=== PATIENT | male | born 1965 | race African-American/Black ===

== ENCOUNTER 2016-10-12 02:46 | Inpatient (IN) | payer MEDICARE, MEDICAID ==
[~2016-10-12] VITALS: Ht 190.5 cm; Wt 73.3 kg
[~2016-10-12 02:46] MED LIST: ADVAIR; ALBU25PO2; ALBUTEROL; AMLO5TAB2 PO; ANTIHYPERTENSIVE PO; ASPI-515 PO; ASPI-650 PO; ATOR80TA75 PO; AZIT500T4 PO; CEFD300C2 PO; DILT360C PO; DOXY100C15 PO; DOXY50CA42 PO; FLUT1AER INH; FLUT1DIS; HYDR12.53 PO; HYDR25TA6 PO; IPRA14.7; LISI5TAB7 PO; METO50TA82 PO; NICO1PAT4 TD; NICO1PAT5 TD; PRED10TA PO; PRED10TA14 PO; PRED20TA PO; PRED5TAB PO; PROVENTIL; VERA120T5 PO
[2016-10-12] MEDS ORDERED: methylPREDNISolone SOD SUCC 125 MG/2 ML IVP ONE (03:00)
[2016-10-12] MEDS ORDERED: SODIUM CHLORIDE FLUSH 10ML SYR IVF ONE (03:00)
[2016-10-12] MEDS ORDERED: SODIUM CHLORIDE 0.9% 1,000ML IVBOLUS ONE (03:00)
[2016-10-12] MEDS ORDERED: ONDANSETRON 2MG/ML, 2ML IVP ONE (03:00)
[2016-10-12] MEDS ORDERED: ALBUTEROL 0.5%, 20ML NPPB SCH (03:00)
[2016-10-12] MEDS ORDERED: IPRATROPIUM 0.5 MG/2.5 ML INHA NPPB SCH (03:00)
[2016-10-12] MEDS ORDERED: methylPREDNISolone SOD SUCC 125 MG/2 ML ONE (03:08)
[2016-10-12] MEDS ORDERED: ONDANSETRON 2MG/ML, 2ML ONE (03:08)
[2016-10-12] MEDS ORDERED: ALBUTEROL/IPRATROPIUM 2.5MG/0.5MG, 3 ML ONE (03:11)
[2016-10-12 03:39] LABS: ASPARTATE AMINO TRANSFERASE 28 U/L (15-37); BLOOD UREA NITROGEN 17 mg/dL (7-18)
[2016-10-12 03:43] LABS: IS PT STATUS REG ER OR PRE ER? YES
[2016-10-12] MEDS ORDERED: ASPIRIN 325 MG TABLET PO ONE (04:00)
[2016-10-12] MEDS ORDERED: ASPIRIN 325 MG TABLET ONE (04:09)
[2016-10-12] MEDS ORDERED: SODIUM CHLORIDE 0.9% 1,000 ML IV SCH (07:29)
[2016-10-12] MEDS ORDERED: LABETALOL 5MG/ML, 20ML IV PRN (07:30)
[2016-10-12] MEDS ORDERED: TRAZODONE 50MG TABLET PO PRN (07:30)
[2016-10-12] MEDS ORDERED: BISACODYL 10 MG SUPP PR PRN (07:30)
[2016-10-12] MEDS ORDERED: ACETAMINOPHEN 325 MG TABLET PO PRN (07:30)
[2016-10-12] MEDS ORDERED: DOCUSATE 100 MG CAPSULE PO PRN (07:30)
[2016-10-12] MEDS ORDERED: POLYETHYLENE GLYCOL 17 GM PACKET PO PRN (07:30)
[2016-10-12] MEDS ORDERED: ONDANSETRON ODT 4 MG PO PRN (07:30)
[2016-10-12] MEDS ORDERED: REGADENOSON 0.4 MG/5 ML SYRINGE ONE (08:06)
[2016-10-12 08:58] LABS: IS PT STATUS REG ER OR PRE ER? NO
[2016-10-12] MEDS: HYDROCHLOROTHIAZIDE 25 MG TABLET PO SCH (09:18)
[2016-10-12] MEDS: HEPARIN 5,000 UNITS/ML, 1ML SQ SCH ×3 (09:18→23:30)
[2016-10-12] MEDS: ASPIRIN 81 MG TABLET EC PO SCH (09:18)
[2016-10-12] MEDS: AZITHROMYCIN 500 MG TABLET PO SCH (09:18)
[2016-10-12] MEDS: METOPROLOL TARTRATE 50 MG TABLET PO SCH ×2 (09:18→18:16)
[2016-10-12] MEDS: NICOTINE 21 MG/24 HR PATCH.TD24 TD SCH (09:19)
[2016-10-12] MEDS ORDERED: ALBUTEROL SULFATE 2.5 MG/3 ML NPPB PRN (10:00)
[2016-10-12 12:52] VITALS: BP 144/96
[2016-10-12] MEDS: FLUTICASONE/VILANTEROL 100-25MCG/INH INH SCH (12:53)
[2016-10-12 15:51] LABS: IS PT STATUS REG ER OR PRE ER? NO
[2016-10-12 19:27] VITALS: BP 140/88
[2016-10-12] MEDS: ATORVASTATIN 80 MG TABLET PO SCH ×2 (22:44→23:30)
[2016-10-13 01:36] VITALS: BP 124/70
[2016-10-13 03:35] LABS: DAU SCREEN DISCLAIMER
[2016-10-13 05:33] LABS: HEMOGLOBIN 14.8 g/dL (13.7-18.0)
[2016-10-13 05:45] LABS: BLOOD UREA NITROGEN 22 mg/dL (7-18)
[2016-10-13 05:54] LABS: DIFF TOTAL CELLS COUNTED 100 CELL DIFF
[2016-10-13 05:55] LABS: VERIFY COUNTS? YES
[2016-10-13] MEDS: NICOTINE 21 MG/24 HR PATCH.TD24 TD SCH (07:30)
[2016-10-13 07:31] VITALS: BP 138/90
[2016-10-13] MEDS: AZITHROMYCIN 500 MG TABLET PO SCH (07:38)
[2016-10-13] MEDS: HYDROCHLOROTHIAZIDE 25 MG TABLET PO SCH (07:38)
[2016-10-13] MEDS: ASPIRIN 81 MG TABLET EC PO SCH (07:38)
[2016-10-13] MEDS: METOPROLOL TARTRATE 50 MG TABLET PO SCH (07:38)
[2016-10-13] MEDS: FLUTICASONE/VILANTEROL 100-25MCG/INH INH SCH (07:40)
[2016-10-13] MEDS: HEPARIN 5,000 UNITS/ML, 1ML SQ SCH (07:40)
[2016-10-13] MEDS ORDERED: AZIT500T4 PO (10:19)
[2016-10-13] MEDS ORDERED: IPRA4AER INH (10:19)
[2016-10-13] MEDS ORDERED: PRED10TA PO (10:19)
[2016-10-13] MEDS ORDERED: LISI5TAB7 PO (10:35)
== END 2016-10-13 11:54 | disposition home or self-care (01) | DRG 895 ==
LOC: ED 02:49 → EDIP 03:46 → 5SO 07:59 → 3NE 18:03 → DCLOUNGE 10-13 11:34
PROVIDERS: ADMIT Internal Medicine; ATTEND Internal Medicine
PROC: HZ31ZZZ Individual Counseling for Substance Abuse Treatment, Behavioral (ICD-10-PCS; principal; 2016-10-12)
DX: F15.188 Other stimulant abuse with other stimulant-induced disorder (principal); J44.1 Chronic obstructive pulmonary disease with (acute) exacerbation; I10 Essential (primary) hypertension; F12.10 Cannabis abuse, uncomplicated; F17.210 Nicotine dependence, cigarettes, uncomplicated; Z82.49 Family history of ischemic heart disease and other diseases of the circulatory system; Z83.3 Family history of diabetes mellitus; Z71.51 Drug abuse counseling and surveillance of drug abuser
CPT/HCPCS: 36415; 71010; 78452; 80048; 80053; 80307; 83735; 84439; 84443; 84484; 85025; 93005; 93017; 94640; 96361; 96374; J1644; J2405; J2785; J7613; A9502; C9898; J2930; J7030; J7512

== ENCOUNTER 2016-12-02 01:09 | Emergency (ER) | payer MEDICARE, MEDICAID ==
[~2016-12-02] VITALS: Ht 190.5 cm; Wt 71.9 kg
[~2016-12-02 01:09] MED LIST changes: -AZIT500T4 PO; +AZIT500T77 PO; -CEFD300C2 PO; +CEFD300C37 PO; +IPRA4AER INH
[2016-12-02 02:29] LABS: BLOOD UREA NITROGEN 18 mg/dL (7-18)
[2016-12-02] MEDS ORDERED: ALBUTEROL SULFATE 2.5 MG/3 ML NPPB ONE (02:30)
[2016-12-02 02:38] LABS: IS PT STATUS REG ER OR PRE ER? YES
[2016-12-02] MEDS ORDERED: ALBUTEROL/IPRATROPIUM 2.5MG/0.5MG, 3 ML ONE (03:48)
[2016-12-02 04:05] VITALS: BP 139/91
== END 2016-12-02 04:09 | disposition home or self-care (01) ==
LOC: ED 03:01
DX: J44.1 Chronic obstructive pulmonary disease with (acute) exacerbation (principal); I10 Essential (primary) hypertension; I25.2 Old myocardial infarction
CPT/HCPCS: 36415; 71010; 80048; 82040; 84484; 85025; 94640; 99285; J7512; J7613

== ENCOUNTER 2016-12-06 09:56 | Emergency (ER) | payer MEDICARE, MEDICAID ==
[~2016-12-06] VITALS: Ht 190.5 cm; Wt 72.0 kg
[2016-12-06] MEDS ORDERED: ALBUTEROL SULFATE 2.5 MG/3 ML NPPB ONE (10:00)
[2016-12-06] MEDS ORDERED: DEXAMETHASONE 4 MG/ML, 1ML IVPush ONE (10:00)
[2016-12-06] MEDS ORDERED: ALBUTEROL 0.5%, 20ML ONE (10:12)
[2016-12-06] MEDS ORDERED: DEXAMETHASONE 4 MG/ML, 1ML ONE (10:23)
[2016-12-06] MEDS ORDERED: ALBUTEROL 0.5%, 20ML NPPBCONT PRN (11:00)
[2016-12-06 11:25] VITALS: BP 154/117
== END 2016-12-06 11:28 | disposition home or self-care (01) ==
LOC: ED 10:33
DX: J96.01 Acute respiratory failure with hypoxia (principal); I10 Essential (primary) hypertension; J45.51 Severe persistent asthma with (acute) exacerbation; Z91.14 Patient's other noncompliance with medication regimen; J44.9 Chronic obstructive pulmonary disease, unspecified; F17.210 Nicotine dependence, cigarettes, uncomplicated
CPT/HCPCS: 71010; 93005; 94644; 96374; 99291; J1100

== ENCOUNTER 2017-01-11 13:30 | Emergency (ER) | payer MEDICARE, MEDICAID ==
[~2017-01-11] VITALS: Ht 190.5 cm; Wt 68.5 kg
[2017-01-11 13:32] VITALS: BP 144/87
[2017-01-11] MEDS ORDERED: ALBUTEROL/IPRATROPIUM 2.5MG/0.5MG, 3 ML ONE (14:20)
[2017-01-11] MEDS ORDERED: ALBUTEROL/IPRATROPIUM 2.5MG/0.5MG, 3 ML NPPB ONE (14:30)
[2017-01-11 14:40] LABS: BLOOD UREA NITROGEN 14 mg/dL (7-18)
== END 2017-01-11 15:40 | disposition home or self-care (01) ==
LOC: ED 15:15
DX: J44.1 Chronic obstructive pulmonary disease with (acute) exacerbation (principal); I10 Essential (primary) hypertension; I25.2 Old myocardial infarction
CPT/HCPCS: 36415; 71020; 80048; 82040; 85025; 93005; 94640; 99285; J7512; J7620

== ENCOUNTER 2017-02-24 08:11 | Emergency (ER) | payer MEDICAID, MEDICARE ==
[~2017-02-24] VITALS: Ht 190.5 cm; Wt 70.0 kg
[2017-02-24] MEDS ORDERED: ALBUTEROL/IPRATROPIUM 2.5MG/0.5MG, 3 ML ONE (08:23)
[2017-02-24] MEDS ORDERED: methylPREDNISolone SOD SUCC 125 MG/2 ML ONE (08:28)
[2017-02-24] MEDS ORDERED: SODIUM CHLORIDE 0.9% 1,000ML IVBOLUS ONE (08:30)
[2017-02-24] MEDS ORDERED: ALBUTEROL/IPRATROPIUM 2.5MG/0.5MG, 3 ML NPPB ONE (08:30)
[2017-02-24] MEDS ORDERED: SODIUM CHLORIDE FLUSH 10ML SYR IVF ONE (08:30)
[2017-02-24] MEDS ORDERED: methylPREDNISolone SOD SUCC 125 MG/2 ML IVP ONE (08:30)
[2017-02-24 09:10] LABS: HEMATOCRIT 40.6 % (39.2-51.8); HEMOGLOBIN 13.3 g/dL (13.7-18.0); WHITE BLOOD COUNT 10.6 x10^3/uL (3.4-10)
[2017-02-24 09:24] LABS: BLOOD UREA NITROGEN 6 mg/dL (7-18)
[2017-02-24 09:32] LABS: IS PT STATUS REG ER OR PRE ER? YES
[2017-02-24] MEDS ORDERED: CLOPIDOGREL 75 MG TABLET ONE (09:44)
[2017-02-24] MEDS ORDERED: CLOPIDOGREL 75 MG TABLET PO ONE (10:00)
[2017-02-24 12:43] LABS: IS PT STATUS REG ER OR PRE ER? YES
[2017-02-24 13:22] VITALS: BP 148/75
== END 2017-02-24 13:24 | disposition home or self-care (01) ==
LOC: ED 08:54
DX: J44.1 Chronic obstructive pulmonary disease with (acute) exacerbation (principal); R07.89 Other chest pain; R74.8 Abnormal levels of other serum enzymes; I51.7 Cardiomegaly; F17.210 Nicotine dependence, cigarettes, uncomplicated; J43.9 Emphysema, unspecified; I25.2 Old myocardial infarction
CPT/HCPCS: 36415; 71010; 80048; 82040; 84484; 85025; 93005; 94640; 96361; 96374; 99285; J2930; J7030; J7620

== ENCOUNTER 2017-05-07 04:52 | Inpatient (IN) | payer MEDICARE, MEDICAID ==
[~2017-05-07] VITALS: Ht 188 cm; Wt 73.0 kg
[~2017-05-07 04:52] MED LIST changes: +ATOR-2 PO; -ATOR80TA75 PO; +AZIT500T5 PO; -AZIT500T77 PO; +NICO-486 TD; +NICO-487 TD; -NICO1PAT4 TD; -NICO1PAT5 TD
[2017-05-07] MEDS ORDERED: SODIUM CHLORIDE 0.9% 1,000 ML IV ONE (05:01)
[2017-05-07] MEDS: ALBUTEROL/IPRATROPIUM 2.5MG/0.5MG, 3 ML NPPB SCH ×4 (05:06→21:49)
[2017-05-07] MEDS ORDERED: methylPREDNISolone SOD SUCC 125 MG/2 ML ONE ×2 (05:19→10:24)
[2017-05-07] MEDS ORDERED: methylPREDNISolone SOD SUCC 125 MG/2 ML IVP ONE (05:30)
[2017-05-07] MEDS ORDERED: SODIUM CHLORIDE FLUSH 10ML SYR IVF ONE (05:30)
[2017-05-07 05:48] LABS: ABG COLLECTION SITE RIGHT RADIAL; COLLATERAL CIRCULATION TESTING NORMAL
[2017-05-07 05:57] LABS: BLOOD UREA NITROGEN 24 mg/dL (7-18)
[2017-05-07 06:13] LABS: HEMATOCRIT 40.8 % (39.2-51.8); HEMOGLOBIN 13.5 g/dL (13.7-18.0); WHITE BLOOD COUNT 7.7 x10^3/uL (3.4-10)
[2017-05-07] MEDS ORDERED: ALBUTEROL/IPRATROPIUM 2.5MG/0.5MG, 3 ML NPPB SCH (07:00)
[2017-05-07] MEDS ORDERED: ENALAPRILAT 1.25 MG/ML, 2ML ONE (08:59)
[2017-05-07] MEDS ORDERED: ENALAPRILAT 1.25 MG/ML, 2ML IV ONE (09:00)
[2017-05-07] MEDS ORDERED: ONDANSETRON 2MG/ML, 2ML IVPush PRN (10:00)
[2017-05-07] MEDS ORDERED: ACETAMINOPHEN 325 MG TABLET PO PRN (10:00)
[2017-05-07] MEDS ORDERED: ALBUTEROL/IPRATROPIUM 2.5MG/0.5MG, 3 ML NPPB PRN (10:00)
[2017-05-07] MEDS ORDERED: FUROSEMIDE 20 MG/2 ML ONE (10:24)
[2017-05-07] MEDS ORDERED: ENOXAPARIN 40 MG/0.4 ML ONE (10:24)
[2017-05-07] MEDS: methylPREDNISolone SOD SUCC 125 MG/2 ML IVPush SCH ×3 (10:33→22:03)
[2017-05-07] MEDS: FUROSEMIDE 20 MG/2 ML IV SCH (10:34)
[2017-05-07] MEDS: ENOXAPARIN 40 MG/0.4 ML SQ SCH (10:34)
[2017-05-07] MEDS ORDERED: ALBUTEROL/IPRATROPIUM 2.5MG/0.5MG, 3 ML ONE (10:46)
[2017-05-07] MEDS: HYDROCHLOROTHIAZIDE 25 MG TABLET PO SCH (12:14)
[2017-05-07] MEDS: DOXYCYCLINE 100 MG in DEXTROSE 5% 250 ML IV SCH ×2 (12:15→23:56)
[2017-05-07 13:45] VITALS: BP 141/93
[2017-05-07 19:20] VITALS: BP 139/88
[2017-05-08 01:28] VITALS: BP 113/76
[2017-05-08] MEDS: methylPREDNISolone SOD SUCC 125 MG/2 ML IVPush SCH ×4 (04:41→21:10)
[2017-05-08] MEDS: ALBUTEROL/IPRATROPIUM 2.5MG/0.5MG, 3 ML NPPB SCH ×3 (06:00→14:00)
[2017-05-08 06:02] LABS: BLOOD UREA NITROGEN 28 mg/dL (7-18); HEMATOCRIT 43.2 % (39.2-51.8); HEMOGLOBIN 14.2 g/dL (13.7-18.0); WHITE BLOOD COUNT 17.1 x10^3/uL (3.4-10)
[2017-05-08 06:13] LABS: ASPARTATE AMINO TRANSFERASE 30 U/L (15-37)
[2017-05-08 07:30] VITALS: BP 148/104
[2017-05-08 07:50] VITALS: BP 144/98
[2017-05-08] MEDS: ENOXAPARIN 40 MG/0.4 ML SQ SCH (09:26)
[2017-05-08] MEDS: FUROSEMIDE 20 MG/2 ML IV SCH (09:26)
[2017-05-08] MEDS: HYDROCHLOROTHIAZIDE 25 MG TABLET PO SCH (09:27)
[2017-05-08] MEDS: DOXYCYCLINE 100 MG in DEXTROSE 5% 250 ML IV SCH ×2 (12:24→23:59)
[2017-05-08 13:45] VITALS: BP 113/77
[2017-05-08] MEDS ORDERED: ALBUTEROL/IPRATROPIUM 2.5MG/0.5MG, 3 ML NPPB PRN (19:00)
[2017-05-08 20:22] VITALS: BP 145/97
[2017-05-09 01:40] VITALS: BP 141/84
[2017-05-09] MEDS: methylPREDNISolone SOD SUCC 125 MG/2 ML IVPush SCH ×3 (03:29→16:22)
[2017-05-09 05:28] LABS: HEMATOCRIT 45.2 % (39.2-51.8); WHITE BLOOD COUNT 22.2 x10^3/uL (3.4-10)
[2017-05-09 05:37] LABS: BLOOD UREA NITROGEN 37 mg/dL (7-18)
[2017-05-09 06:02] LABS: DIFF TOTAL CELLS COUNTED 100 CELL DIFF
[2017-05-09 06:03] LABS: VERIFY COUNTS? YES
[2017-05-09 06:04] LABS: ANISOCYTOSIS 1+; POLYCHROMASIA 1+
[2017-05-09 08:19] VITALS: BP 144/101
[2017-05-09] MEDS: FUROSEMIDE 20 MG/2 ML IV SCH (08:34)
[2017-05-09] MEDS: ENOXAPARIN 40 MG/0.4 ML SQ SCH (08:35)
[2017-05-09] MEDS: HYDROCHLOROTHIAZIDE 25 MG TABLET PO SCH (08:35)
[2017-05-09] MEDS: DOXYCYCLINE 100 MG in DEXTROSE 5% 250 ML IV SCH (11:46)
[2017-05-09 14:08] VITALS: BP 122/88
[2017-05-09] MEDS ORDERED: ACETAMINOPHEN 325 MG TABLET PO PRN (16:00)
[2017-05-09] MEDS ORDERED: ONDANSETRON 2MG/ML, 2ML IVPush PRN (16:00)
[2017-05-09] MEDS ORDERED: HYDR25TA11 PO (17:37)
[2017-05-09] MEDS ORDERED: FURO20TA3 PO (17:41)
[2017-05-09] MEDS ORDERED: PRED10TA PO (17:41)
[2017-05-09] MEDS ORDERED: POTA10TA5 PO (17:41)
[2017-05-09] MEDS ORDERED: FLU VACC QS2017-18 (36MOS+) UP/PF 0.5 ML IM-VACC ONE (18:30)
[2017-05-10] MEDS ORDERED: FUROSEMIDE 20 MG TABLET PO SCH ×2 (09:00)
[2017-05-10] MEDS ORDERED: HYDROCHLOROTHIAZIDE 25 MG TABLET PO SCH (09:00)
== END 2017-05-09 18:30 | disposition home or self-care (01) | DRG 291 ==
LOC: ED 05:50 → EDIP 07:25 → 4WST 12:55
PROVIDERS: ADMIT Internal Medicine; ATTEND Internal Medicine
DX: I11.0 Hypertensive heart disease with heart failure (principal); J96.01 Acute respiratory failure with hypoxia; J45.902 Unspecified asthma with status asthmaticus; J44.1 Chronic obstructive pulmonary disease with (acute) exacerbation; I50.43 Acute on chronic combined systolic (congestive) and diastolic (congestive) heart failure; I25.5 Ischemic cardiomyopathy; I25.10 Atherosclerotic heart disease of native coronary artery without angina pectoris; E78.5 Hyperlipidemia, unspecified; F17.210 Nicotine dependence, cigarettes, uncomplicated; R00.0 Tachycardia, unspecified; I25.2 Old myocardial infarction
CPT/HCPCS: 36415; 36600; 71010; 80048; 80053; 82040; 82803; 83735; 84439; 84443; 85025; 90686; 93005; 93306; 94640; 96374; 96375; J1650; J7060; J7620; J1940; J2930; J7030